=== PATIENT | male | born 1995 | race Caucasian/White ===

== ENCOUNTER 2018-05-19 11:27 | Outpatient (CLI) | payer BC ==
--- NOTE | 2018-05-19 12:16 | RAD ---
RIGHT HAND THREE VIEWS: HISTORY: Injury one month ago with persistent pain, third digit. FINDINGS: A pin is seen in the carpals, overlying the hamate. Degenerative changes at the fourth and fifth car pometacarpal joints and mild degenerative change at the first carpometacarpal. MCP joint is unremarkable. There is a dislocation of the PIP joint of the third finger, best appreciated on the lateral view. T he lateral view also reveals a chip fracture from the ventral proximal corner of the middle phalanx a t this PIP joint. IMPRESSION: Mild dislocation/subluxation of the proximal interphalangeal joint of the third finger, seen on the l ateral view. There is associated chip fracture from the ventral corner of the middle phalanx of this finger at this proximal interphalangeal joint. POS: YONIS
== END 2018-05-19 11:28 | disposition home or self-care (01) ==
LOC: MADRAD 11:27
PROVIDERS: ATTEND General Practice
DX: M79.644 Pain in right finger(s) (principal); M79.89 Other specified soft tissue disorders; S62.612A Displaced fracture of proximal phalanx of right middle finger, initial encounter for closed fracture

== ENCOUNTER 2020-05-23 17:51 | Emergency (ER) | payer BC, OTHER ==
[2020-05-23] MEDS ORDERED: Lidocaine 1% w/Epinephrine 1:100K 20 ML VIAL ONE (18:25)
[2020-05-23] MEDS ORDERED: Bacitracin 1 PK ONE (18:33)
== END 2020-05-23 18:48 | disposition home or self-care (01) ==
LOC: MADERS 17:51
DX: S51.812A Laceration without foreign body of left forearm, initial encounter (principal); K21.9 Gastro-esophageal reflux disease without esophagitis; F41.9 Anxiety disorder, unspecified; F32.9 Major depressive disorder, single episode, unspecified; F98.8 Other specified behavioral and emotional disorders with onset usually occurring in childhood and adolescence; F17.220 Nicotine dependence, chewing tobacco, uncomplicated; W26.0XXA Contact with knife, initial encounter; Z79.899 Other long term (current) drug therapy
CPT/HCPCS: 12001

== ENCOUNTER 2020-05-23 19:02 | Outpatient (CLI) | payer SELFPAY | END 2020-05-23 19:03 | disposition home or self-care (01) | LOC: MADLAB 19:02 | PROVIDERS: ATTEND Pathology Anatomic Pathology & Clinical Pathology | DX: Z51.81 Encounter for therapeutic drug level monitoring (principal); Z79.899 Other long term (current) drug therapy | CPT/HCPCS: 80305 ==

== ENCOUNTER 2021-06-23 09:19 | Emergency (ER) | payer BC | END 2021-06-23 10:30 | disposition home or self-care (01) | LOC: MADERS 09:19 | DX: F31.9 Bipolar disorder, unspecified (principal); R45.4 Irritability and anger; Z91.19 Patient's noncompliance with other medical treatment and regimen; K21.9 Gastro-esophageal reflux disease without esophagitis; F17.220 Nicotine dependence, chewing tobacco, uncomplicated | CPT/HCPCS: 99285 ==

== ENCOUNTER 2024-06-10 10:18 | Emergency (ER) | payer BC ==
[2024-06-10] MEDS ORDERED: Acetaminophen 325 MG TAB ONE (10:37)
[2024-06-10] MEDS ORDERED: Ibuprofen 800 MG TAB ONE (10:37)
== END 2024-06-10 10:35 | disposition home or self-care (01) ==
LOC: MADERS 10:18
DX: S93.601A Unspecified sprain of right foot, initial encounter (principal); F17.220 Nicotine dependence, chewing tobacco, uncomplicated; W19.XXXA Unspecified fall, initial encounter

== ENCOUNTER 2024-06-29 00:02 | Emergency (ER) | payer BC ==
[2024-06-29] MEDS ORDERED: Erythromycin Base 0.5% Ophth Oint 3.5 gm Tube ONE (00:36)
== END 2024-06-29 00:56 | disposition home or self-care (01) ==
LOC: MADERS 00:02
DX: H10.9 Unspecified conjunctivitis (principal); F17.210 Nicotine dependence, cigarettes, uncomplicated
CPT/HCPCS: 99283